=== PATIENT | female | born 1960 | race Two or more races ===

== ENCOUNTER 2021-12-11 06:19 | Day surgery (SDC) | payer OTHER ==
[~2021-12-11] VITALS: Ht 157.5 cm; Wt 57.6 kg
[2021-12-11] MEDS ORDERED: PERCOCET 5-3251 EACH PO (10:02)
== END 2021-12-11 14:00 | disposition home or self-care (01) ==
LOC: CIR.AMB 06:19
PROVIDERS: ATTEND Surgery
DX: K64.8 Other hemorrhoids (principal); Z20.822 Contact with and (suspected) exposure to COVID-19